=== PATIENT | female | born 1965 | race Asian ===

== ENCOUNTER 2020-09-04 19:34 | Inpatient (IN) | payer OTHER ==
[~2020-09-04] VITALS: Ht 157.5 cm; Wt 56.2 kg
[2020-09-04 19:52] VITALS: Ht 157.5 cm; Wt 56.2 kg
--- NOTE | 2020-09-04 20:01 | NUR ---
PT WAS BIBA WITH A C/C OF BLEEDING FROM THE LEFT BREAST. PT REPORTS APROX 4 YEARS AGO SHE PICKED A SCAB OFF OF HER LEFT NIPPLE AND SITUATION HAS PROGRESSED FROM THEN. PT REPORTS BLEEDING FROM THE LEFT BREAST. UPON INSPECTION PT HAS SKIN BREAK DOWN OF THE LEFT BREAST AND BLACK TISSUE AROUND THE NIPPLE. PT HAS LEFT BREAST COVERED WITH TISSUE. PT ALSO HAS BLACK TISSUE AROUND THE RIGHT NIPPLE. PT AAO X4 RESPIRATIONS E/U NO ACUTE DISTRESS NOTED. DR. PARNELL AT BEDSIDE FOR MSE.
--- NOTE | 2020-09-04 20:02 | NUR ---
PT ALSO HAS SWELLING TO THE LEFT ARM X4 DAYS. PT REPORTS NO PAIN AT AFFECTED SITE OR ARM. PER MEDIC PT VOMITED ONE TIME ON SCENE AND WAS GIVEN 4MG IVP OF ZOFRAN. PT REPORTS NO NAUSEA AT THIS TIME.
[2020-09-04 20:45] LABS: CALCIUM 8.2 mg/dL (8.5-10.1); CARBON DIOXIDE 16.8 mmol/L (21-32); CHLORIDE SERUM 98 mmol/L (98-107); GFR1 > 60 mL/min; GLUCOSE SERUM 166 mg/dL (74-106); POTASSIUM SERUM 3.7 mmol/L (3.5-5.1); SODIUM SERUM 131 mmol/L (136-145)
[2020-09-04 20:46] LABS: PLATELET COUNT 270 x10^3mcL (130-400)
[2020-09-04 20:50] LABS: ALBUMIN 1.8 g/dL (3.4-5.0); ALKALINE PHOSPHATASE 408 U/L (46-116); ALT/SGPT 51 U/L (14-59); AST/SGOT 56 U/L (15-37); BILIRUBIN TOTAL 0.5 mg/dL (0.20-1.00); TOTAL PROTEIN, SERUM 6.1 g/dL (6.4-8.2)
[2020-09-04 20:55] LABS: RED CELL DISTRIBUTION WIDTH 23.2 % (11.5-14.5)
--- NOTE | 2020-09-04 21:13 | NUR ---
PT LAYING SUPINE IN GURNEY IN POSITION OF COMFORT. PT AAO X4 REPSIRATIONS E/U NO ACUTE DISTRESS NOTED.
[2020-09-04 21:16] LABS: BAND NEUTROPHIL 14 % (0-10); BASOPHIL 0 % (0-2); METAMYELOCTE 5 % (0-2); MONOCYTE 8 % (0-7); SEGMENTED NEUTROPHILS 42 % (37-75)
[2020-09-04 21:18] LABS: rbc morphology (normal/abnorm) ABNORMAL (NORMAL)
[2020-09-04 21:19] LABS: schistocyte (helmet cell) 1+
[2020-09-04 21:20] LABS: PLATELET MORPHOLOGY PLATELETS NORMAL
--- NOTE | 2020-09-04 21:40 | NUR ---
SPOKE WITH LAB TO GET UPDATE ON STATUS OF BLOOD ORDERED. LAB STATES BLOOD WILL BE AVAILABLE IN APROX 30 MIN. WILL FOLLOW UP.
--- NOTE | 2020-09-04 22:54 | NUR ---
15 MINUTE SANTINO OF BLOOD ADMINISTRATION. PT DENIES ANY SYMPTOMS OF TRANSFUSION REACTION. PT AAO X4 RESPIRATIONS E/U NO DISTRESS NOTED.
--- NOTE | 2020-09-04 23:31 | NUR ---
CALLED REPORT TO PIERCE LOPEZ TO ASSUME PRIMARY CARE OF PT.
[2020-09-04 23:40] LABS: CHOLESTEROL/HDL RATIO 5.8; MAGNESIUM 2.2 mg/dL (1.8-2.4); PHOSPHOROUS 4.7 mg/dL (2.5-4.9)
--- NOTE | 2020-09-04 23:59 | NUR ---
RESIDENT ROBERTS AT BEDSIDE FOR ASSESSMENT.
[2020-09-05] VITALS (7 sets, daily range): BP systolic 96–135; BP diastolic 58–74
[2020-09-05 00:08] LABS: FREE T4 0.9 ng/dL (0.76-1.46); FREE THYROXINE INDEX 2.1 ug/dL (1.4-4.5); T4(THYROXINE) 6.3 ug/dL (4.7-13.3)
[2020-09-05 00:20] LABS: T3 TOTAL 1.48 ng/mL
--- NOTE | 2020-09-05 00:32 | NUR ---
CRITICAL RESULT OF LACTIC ACID OF 3.[address] CORTÉS PAGED AT [phone] TO TELL CRITICAL RESULT TO. DR. BARBER, ED DOCTOR AWARE OF CRITICAL RESULT WELL. HOWEVER, PATIENT IS NOW UNDERADMISSION ORDERS AND DR. BARBER IS NO LONGER THE PRIMARY CARE DOCTOR.
--- NOTE | 2020-09-05 00:46 | NUR ---
PIERCE LOPEZ [facility] PRIMARY RN INFORMED OF CRITICAL VALUES OF 3.6 LACTIC ACID AND 0.157 TROPONIN. IT WAS AGREED THAT AFTER AN HOUR IF DR. CORTÉS DOES NOT CALL BACK IN AN HOUR I WILL LET PIERCE LOPEZ KNOW AND SHE WILL ASSUME RESPONSIBILITY TO LET DR. CORTÉS CRITICAL VALUES.
--- NOTE | 2020-09-05 00:50 | NUR ---
LACTIC ACID 3.6, TROPONIN 0.157 - DR. ROBERTS NOTIFIED.
--- NOTE | 2020-09-05 01:12 | NUR ---
REC'D PT FROM ED VIA [facility] ACCOMPANIED BY RN. PT ADM WITH CC OF L BREAST BLEEDING. BLOOD INFUSING @ 150 ML/HR TO RAC. RAC IV X2. PT TRANSFERRED FROM [facility] TO BED VIA SLIDE WITH 2 PERSON ASSIST. AAOX4, SPEECH CLEAR, FOLLOWS COMMANDS. TELE 35. DENIES CP, DIZZINESS, OR PALPITATIONS. C/O SOME LIGHTHEADEDNESS. DENIES RESP DISTRESS OR SOB. BREATHING EVEN/UNLABORED ON RA. REPORTS MILD PRODUCTIVE COUGH WITH SCANT YELLOW- GREEN SPUTUM. ABD SOFT/ROUND. DENIES ABD PAIN, TENDERNESS, OR N/V. VOIDING FREELY. LARGE OPEN WOUND ACROSS THE CHEST- MOSTLY ON THE LEFT SIDE. MOSTLY RED WOUND BED WITH YELLOW SPOTS AND PAPER ON THE WOUND. PT STATES SHE HAS BEEN "PUTTING TOILET PAPER" TO SOAK UP THE FLUID. R BREAST WITH BLACK TISSUE. DENIES ANY PAIN. BLE TRACE NONPITTING EDEMA. JESUS MANUEL TRACE PITTING EDEMA. ORIENTED TO DEVICES AND SURROUNDINGS. CALL LIGHT WITHIN REACH, BED AT LOWEST POSITION. REPORT GIVEN TO PIERCE LOPEZ.
--- NOTE | 2020-09-05 01:46 | NUR ---
CRITICAL VALUE TOLD TO DR. HUERTAS OF 3.6 LACTIC ACID AND 0.157 TROPONIN. ATTENDING MD TO DR. HUERTAS CALLED TO GET CRITICAL VAULE AND UNIT SECRATARY DID NOT LET YAYA RN KNOW THEY CALLED TO GIVE CRITICAL VAULE. WAS TOLD BY UNIT SECRATRY OF ED THAT I ONLY NEEDED TO TELL THE RESIDENT OF THE CRITICAL VALUES AND THE RESIDENT WILL TELL THE ATTENDING OF THE CRITICAL VALUES.
--- NOTE | 2020-09-05 04:32 | NUR ---
LACTIC 2.3 DOWN TRENDING FROM 3.6 DR. ROBERTS NOTIFIED.
--- NOTE | 2020-09-05 06:21 | NUR ---
PT REMAINS A/OX4, COOPERATIVE, BUT ANXIOUS WITH MANY QUESTIONS. TELE 35, ST 1 TEENS -150S, DENIES CHEST PAIN, DIZZINESS/LIGHTHEADEDNESS. RESPIRATIONS EVEN, UNLABORED, DENIES SOB, RA. NO BM DURING SHIFT. 100ML UOP, CHARANJIT YELLOW. UA, UDS SENT. PT HAS GENERALIZED WEAKNESS AND IS CURRENTLY BEDREST BUT ABLE TO SELF TURN AND ASSIST WITH ADLS. L BREAST/CHEST WALL DEFORMED WITH NECROTIC TISSUE AND ERYTHEMA, TISSUE PAPER STUCK TO WOUND. SEROSANGUINEOUS DRAINAGE, NO BLEEDING NOTED. WOUND COVERED WITH ADAPTIC AND ABD PAD. R BREAST HAS DISCOLORATION AND NECROTIC TISSUE, SENIOR ACCOUNTING MANAGER. NO C/O PAIN. IV X 2 RAC - RUNNING NS@126ML/HR, PATENT, NO COMPLICATIONS TO SITE. PT PENDING US GUIDED BIOPSY, CONSULT WITH VIJAY FOR ELEVATED TROP, GRACIE AND JASMEET. PT MAINTAINED NPO FOR POSSIBLE SURGERY TO L BREAST.
[2020-09-05 06:35] LABS: UA SPECIFIC GRAVITY >=1.030 (1.005-1.035); microscopic required? YES; urine erythrocyte 1+ (NEGATIVE)
--- NOTE | 2020-09-05 08:00 | NUR ---
OX4. TELE 35; NO SOB AT RA. DENIES CP OR OTHER DISCOMFORT; EDEMA ON LUE AND BLE; LT BREAST DSG INTACT; NOTED SEROSANGUINOUS/PURELENT DRAIN ON DSG. DISCOLORATION NOTED ON RT BREAST; ABD IS SOFT, NONTENDER AND NONDISTENDED; NSS AT 126 ML/HR INFUSING; RAC SITE PATENT AND WITHOUT INFILTRATION. FALL AND SAFETY PRECAUTION REINFORCED; WILL CONTINUE TO MONITOR STATUS.
[2020-09-05 08:49] LABS: BASOPHIL % 0.3 % (0-2); PLATELET COUNT 223 x10^3mcL (130-400)
[2020-09-05 09:05] LABS: CARBON DIOXIDE 24.9 mmol/L (21-32); CHLORIDE SERUM 101 mmol/L (98-107); CREATININE SERUM 0.6 mg/dL (0.6-1.0); GFR1 > 60 mL/min; GLUCOSE SERUM 83 mg/dL (74-106); MAGNESIUM 1.9 mg/dL (1.8-2.4); PHOSPHOROUS 3.2 mg/dL (2.5-4.9); POTASSIUM SERUM 3.9 mmol/L (3.5-5.1); SODIUM SERUM 133 mmol/L (136-145)
[2020-09-05 09:07] LABS: AMPHETAMINE QUAL UR NONE DETECTED (See below)
--- NOTE | 2020-09-05 12:40 | NUR ---
(SURGEON) HERE TO SEE PT ACCOMPANIED BY DR. PHILIPPE.
--- NOTE | 2020-09-05 14:28 | NUR ---
PT WAS BROUGHT DOWN TO OR WITH SIGNED CONSENT FOR DEBRIDEMENT LT BREAST/CW INFECTION, BIOPSY. PT IS AAOX4. NO SOB AT RM AIR; PT LEFT THE UNIT BY BED.
--- NOTE | 2020-09-05 17:15 | NUR ---
1640-PT IS BACK FROM O.R. POST DEBRIDEMENT LT BREAST/CHEST WALL INFRECTION, BIOPSY. PT IS AAOX4; NO SOB; LT BREAST DSG CDI; PER HOT STICK MAN, DSG CONSIST OF XEROFORM, ABD PAD AND AZALEA WRAP. DENIES PAIN AT THIS TIME. SLX2 ON THE RT AC; IVF NSS AT 126 ML/HR RESUMED. 1700-DR. BOWMAN (ONCOLOGIST) AND DR. PHILIPPE IN THE ROOM TALKING TO PT. WILL CONTINUE TO MONITOR.
--- NOTE | 2020-09-05 17:20 | NUR ---
RECEIVED PT FROM DAY SHIFT RN. PT AA&O X4. PT DENIES CHEST PAIN AND DISCORMFOT AT THIS TIME. PT ON ROOM AIR WITH O2 SAT 98%. PT DENIES SOB AT THIS TIME. LEFT CHEST DRESSING DRY AND INTACT. INSTRUCTED PT TO USE CALL LIGHT AND PHONE.CALL LIGHT AND PHONE WIHIN REACH.BED IN LOW POSITION. WILL CONTINUE TO MONITOR PT.
--- NOTE | 2020-09-05 18:05 | NUR ---
1745-DR. LIANRES IS HERE ASSESSING PT.
--- NOTE | 2020-09-06 01:20 | NUR ---
PT C/O PINK SPUTUM WHEN SHE TRIED TO CLEAR HER THROAT. SMALL AMOUNT OF BLOOD TINGED SPUTUM NOTED. LUNG SOUNDS CLEAR BILATERAL BY AUSCULTATION. PAGED THE MD REGARDING PT CONCERNS.
[2020-09-06 06:06] VITALS: BP 126/60
--- NOTE | 2020-09-06 06:27 | NUR ---
PT SLEPT IN LONG INTERVALS. SHE HAD NO C/O PAIN. DRESSING TO LT BREAST INTACT. DUE IV ANTIBIOTICS GIVEN. IVF NS INFUSING WELL AT 126 CC/HR VIA RTAC. ALL NEEDS ATTENDED TO.
[2020-09-06 06:51] LABS: PLATELET COUNT 206 x10^3mcL (130-400)
[2020-09-06 07:06] LABS: CALCIUM 7.7 mg/dL (8.5-10.1); CARBON DIOXIDE 25.5 mmol/L (21-32); CHLORIDE SERUM 104 mmol/L (98-107); CREATININE SERUM 0.6 mg/dL (0.6-1.0); GFR1 > 60 mL/min; GLUCOSE SERUM 121 mg/dL (74-106); MAGNESIUM 2.1 mg/dL (1.8-2.4); PHOSPHOROUS 3.3 mg/dL (2.5-4.9); POTASSIUM SERUM 3.9 mmol/L (3.5-5.1); SODIUM SERUM 135 mmol/L (136-145)
[2020-09-06 07:16] LABS: RED CELL DISTRIBUTION WIDTH 18.3 % (11.5-14.5)
--- NOTE | 2020-09-06 07:27 | NUR ---
ENDORSED TO AM NURSE TO REPORT TO RESIDENT REGARDING H/H OF 6.5/20 .
[2020-09-06 08:40] VITALS: BP 132/84
[2020-09-06 13:03] VITALS: BP 99/60
[2020-09-06 13:59] LABS: MONOCYTE 7 % (0-7); SEGMENTED NEUTROPHILS 70 % (37-75); rbc morphology (normal/abnorm) ABNORMAL (NORMAL)
--- NOTE | 2020-09-06 19:00 | NUR ---
PT REPORT RECEIVED FROM SECURITY SYSTEM ENGINEER RN. PT IS CURRENTLY AWAKE. WAS WARNED THAT THERE WOULD BE FREQUENT PT INTERACTIONS. THERE WAS FREQUENT PT INTERACTIONS THROUGHOUT SHIFT EVEN WITH TRYING TO CUT IT SHORT. PT QUESTIONS MINOR DETAILS OF TREATMENTS REPEATEDLY. PT WAS EDUCATED ON NEED FOR FREQUENT REPOSITIONING BUT PT REFUSES TO REPOSITION AND USE BSC BECAUSE SHE IS AFRAID OF HURTING WOUND ON CHEST. LAB REPORTED CRITICAL VALUES FOR PT WBC AND HGB HCT. PAGED THE DOCTORS BUT NO CALL BACK. HOWEVER, I NOTED AND ACKNOWLEDGED AN ORDER FOR PRBCs. WAS LATER INFORMED BY BLOOD BANK THAT ORDER NEEDED TO BE CHANGED FROM AUTOLOGOS PRBC TO LEUKOPOOR PRBC, INFORMED . 1 IV ON THE RIGHT AC AREA LEAKED AND WAS DISCONTINUED, DRESSING CHANGED FOR NEARBY IV. 2 UNITS OF PRBCs ADMINISTERED DURING SHIFT. PT's R AC IV LEAKED AND CAUSED BRUISING DURING ADMINISTRATION OF 1st UNIT. 2nd UNIT OF PRBC WAS GIVEN AT TITRATED MULTIPLE TIMES DUE TO PT COMPLAINT OF PAIN ON IV SITE TO A FINAL 100ml/hr. NEW IV PLACED ON RIGHT HAND BY RESOURCE RN GEE. ENDORSED MONITORING TO SECURITY SYSTEM ENGINEER RN. ALSO INFORMED OF NEED TO CHANGE PT's CT with CONTRAST ORDER TO INCLUDE without CONTRAST FOR COMPARISON REPORTED BY RADIOLOGY. TALKED TO PHARMACY REGARDING PT's VANCO ORDER AND VANCO TROUGH, DOSAGE WAS CHANGED AND TIME WAS ADJUSTED TO ACCOMODATE BLOOD ADMINISTRATION AND UPCOMING CT SCHEDULED. PT REMAINED STABLE THROUGHOUT SHIFT AND WAS NOTICEABLY MORE ENERGETIC WITH ADMINISTRATION OF 1st UNIT OF PRBCs. SAFETY PRECAUTIONS ARE IN PLACE. WILL ENDORSE CARE TO SECURITY SYSTEM ENGINEER RN. - TERMITE TREATER HELPER STUDENT, JEVON, WAS SHADOWING ME FOR THIS SHIFT AND HELPED ME WITH PRIMING TUBES AND ADMINISTERING PO AND SQ MEDICATIONS. OBSERVED FOR CORRECT TECHNIQUES WITH FIRST ADMINSITRATIONS AND WAS NEARBY AND MOSTLY PRESENT FOR FOLLOWING INTERVENTIONS.
--- NOTE | 2020-09-06 19:30 | NUR ---
RECEIVED PT FROM DAY SHIFT NURSE. PT AA&OX4. PT ON TELE#35, SINUS TACHYCARDIA 168. PT DENIES CHEST PAIN OR DISCOMFORT AT THIS TIME. LEFT UPPER EXTREMITY NON-PITTING EDEMA NOTED. BILATERAL LOW EXTREMITIES NON-PITTING EDEMA NOTED CURRENTLY ON SCD. DRESSING INTACT AND DRY ON CHEST NOTED. RIGHT AC PURPLE COLOR SKIN NOTED. LUNG SOUNDS CLEAR BILATERAL, ON ROOM AIR, DENIES SOB AT THIS TIME. IV SITE INTACT AND PATENT. NO ACUTE CHANGES NOTED. INSTRUCTED PT TO CALL FOR ANY ASSISTANCE. CALL LIGHT WITHIN REACH. BED IN LOW POSITION. WILL CONTINUE TO MONITOR PT.
[2020-09-06 21:00] VITALS: BP 109/61
--- NOTE | 2020-09-06 21:00 | NUR ---
2ND UNIT OF PRBC COMPLETED. NO ADVERSE REACTION TO TRANSFUSION OCCURRED. V/S TAKEN AND NOTED STABLE.
[2020-09-06 21:16] VITALS: BP 115/48
--- NOTE | 2020-09-06 21:50 | NUR ---
TRIED TO PUT ANOTHER IV ( FOR CONTRAST). PT IS HARD STICK. PT THEN REFUSED AND SAID SHE WANTS TO REST AND WANTS IT TOMORROW.
--- NOTE | 2020-09-07 05:30 | NUR ---
DRESSING TO LT BREAST CHANGED. XEROFORM GAUZE APPLIED AND COVERED W/ ABD PAD. MOD AMOUNT OF DRAINAGE NOTED. PT ALSO GIVEN MORNING CARE. GOWN AND BLANKETS CHANGED.
--- NOTE | 2020-09-07 07:00 | NUR ---
INFORMED DR. DE PAZ THAT CT HEAD AND NECK W/& W/O IV CONTRAST HAS NOT BEEN DONE YET DUE TO UNABLE TO INSERT IV ON PT. BUT WILL ENDORSE TO AM NURSE TO TRY REINSERTION PER PT'S REQUEST TO HAVE IT DONE TODAY.
--- NOTE | 2020-09-07 07:07 | NUR ---
PATIENT RESTED WELL DURING SHIFT. NO ACUTE CHANGES; NO CHEST PAIN OR SOB. CALL LIGHT WITHIN REACH, WILL ENDORSE CONTINUITY OF CARE TO DAY SHIFT RN.
[2020-09-07 07:48] LABS: PLATELET COUNT 190 x10^3mcL (130-400)
--- NOTE | 2020-09-07 07:50 | NUR ---
RECEIVED PT IN BED A/A/OX4 DENIES COKER. RESP EVEN AND UNLABORED WITH DIMINISHED BS BILAT BASES. DENIES ANY SOB/CP/PRESSURE AT THIS TIME. NOTED WITH NONPITTING EDEMA TO BLE AND LUE. ELEVATED ON PILLOW. IVF TO RH. ABD SOFT, NONTENDER WITH ACTIVE BS X4. DENIES ANY N/V AT THIS TIME. VOIDING FREELY USES BEDPAN. PT WITH LARGE WOUND TO LT BREAST/CHEST AREA. S/P INCISIONAL BX. DRSG CHANGE THIS AM. DRSG CDI. PT REFUSED FURTHER EVALUATION OF WOUND SINCE SHE JUST HAD DRSG CHANGE. GEN WEAKNESS ABLE TO ASSIST WITH REPOSITIONING AND WITH ADLS. CALL LIGHT IN REACH NEEDS ATTENDED TO.
[2020-09-07 08:02] LABS: RED CELL DISTRIBUTION WIDTH 15.5 % (11.5-14.5)
[2020-09-07 08:07] LABS: CALCIUM 7.9 mg/dL (8.5-10.1); CARBON DIOXIDE 22.6 mmol/L (21-32); CHLORIDE SERUM 110 mmol/L (98-107); CREATININE SERUM 0.7 mg/dL (0.6-1.0); GFR1 > 60 mL/min; GLUCOSE SERUM 134 mg/dL (74-106); MAGNESIUM 2.2 mg/dL (1.8-2.4); PHOSPHOROUS 2.7 mg/dL (2.5-4.9); POTASSIUM SERUM 3.5 mmol/L (3.5-5.1); SODIUM SERUM 140 mmol/L (136-145)
[2020-09-07 08:38] VITALS: BP 109/53
[2020-09-07 10:45] LABS: BAND NEUTROPHIL 1 % (0-10); MONOCYTE 5 % (0-7); SEGMENTED NEUTROPHILS 84 % (37-75); rbc morphology (normal/abnorm) NORMAL (NORMAL)
--- NOTE | 2020-09-07 11:04 | NUR ---
SPOKE TO CHARGE NURSE HANDY TO NOTIFY HER THAT DUE TO REQUEST OF SHAJI PRETTY TO DO MRI ON ANOTHER PATIENT THIS AM PRIOR TO THIS ONE THAT THE MRI TIME WILL BE MOVED TO 1030 THIS EVENING. HANDY WILL NOTIFY THE PHYSICIAN AND THE PATIENT.
--- NOTE | 2020-09-07 12:13 | NUR ---
PT'S IV TO RH INFILTRATED SITE SLIGHTLY SWOLLEN AND TENDER. IVF STOPPED. CHECKED AREA FOR NEW IV ONLY VISIBLE SITE WAS HAND. PT REQUESTED TO WAIT TO CHECK IF SWEELING COMES DOWN BEFORE ATTENPTING NEW LINE. PT STILL REQUIRES 20G FOR CT WITH IV CONTRAST. DR. TAVARES HAD BEEN MADE AWARE THIS AM OF MULTI SHARE PROGRAM COORDINATOR NOT BEING ABLE TO GET ACCESS. MADE AWARE NO VISIBLE SITE FOR AC OR UPPER ARM AT THIS TIME FOR 20G. WILL ALLOW SWELLING TO COME DOWN BEFORE ATTEMPTING REQUESTED BY PT. MD AWARE.
[2020-09-07 12:42] VITALS: BP 115/60
--- NOTE | 2020-09-07 14:37 | NUR ---
Initial Nutrition Assessment 236B Isabell Stephenson - 54 YO F Dx: Severe Anemia, Left Breast Mass PMHx: None PSHx: None Labs: (09/05) NA 135L, BG 121H, CA 7.7L, ALB 1.8L, HDL 16L Meds: Colace, Decadron Diet: Regular diet PO intake since admission: (09/05) D: 60% (09/06) B: 40%, prior NPO, avg 50% x 2 Ht: 157.48cm/ 5'2" Wt: 56.245kg/ 124# BMI: 22.7 Bed scale: IBW: 110#/ 50kg %IBW: 127% UBW: Age: 54 Food Allergies: NKFA Skin condition: Kp: 19 Edema: nonpitting edema to BLE and LUE Last BM: 09/04 Per H&P: A 54 y/o F with no known PMH brought in by EMS for active bleeding from her left breast mass. Per EMS patient may lost about 1L blood at home, she was hypotensive with tachycardia. Patient stated developing a small skin scab on her left nipple in 2015 and since then she has been constantly peeling the skin off because the skin is kept growing. At that time she tried to see the specialist and even was scheduled for the mammogram, but her mom was [place] and she had to leave the country. Her mom of breast cancer. She tried to see a doctor again in 2016, but didn't have any insurance and could not afford it out of her pocket. [phone] was just a scab near her left nipple/areola that she peeled constantly, especially after the shower. In 2018 the scab growed as a bump/lump and muliplied in size and quantity. She could obtain the insurance and got scheduled for the mammogram in January, but because the Covid-19 pandemic didn't go to her appointments. Patient reported the acute, profuse and continious bleeding from her left breast since Monday. She tried to stop the bleeding with toilet papers to press on the bleeding parts. Also, patient reported progressing swelling of her left hand last couple weeks. She endorses wt loss about 4-5lbs, also weakness in last few days. RD Note (09/07): Consult for PC malnutrition received. Pt undergone L breast/chest wall mass incisional biopsies, sharp excisional debridement infected/gangrene areas L breast/chest wall and mass. Per progress note, highly suspected Breast Cancer stage 4 with mets to the bones with cauda equina syndrome. Upon visit to bedside pt was talking on phone but returned shortly. She reports she usually weighs 130-135#. Markedly some wt loss about 5-8#. She denies n/v/d/c. No problems chewing or swallowing and good appetite per patient. She says she eats "healthy" at home and "organic." High protein and high calorie education given to patient to assist healing process. She agrees and says she is eating more with an improved appetite. Will continue to monitor intake on a regular diet. Problem with: N/V/D/C: none per pt Problems with: Chewing: Swallowing: no problems Current appetite: good per pt, same as before Recent wt change: 5-8# %wt change: 8% wt. loss Vitamin/Supplement use: omega 3 FA Special diet at home: regular Physical activity: minimal, no much Nutrition education given (specify specific nutrition education and handout given): High Calorie/ High Protein Handout. Pt agrees to add more snacks and high protein meals. Food-drug interactions? Education given? Yes, patient education on high calorie and protein for wound healing. Shopping tips, recipes, and meal examples shown. Estimated Nutritional Needs Based on Actual (56kg) body weight Energy: 1680 - 1960 kcal/day (30-35 kcal/kg) breast ca, bleeding Protein: 84 - 112 g/day (1.5 - 2.0 g/kg) catabolic illness, wt loss reported Fluid: 1680 - 1960 mL/day (1 mL/kcal) Nutrition Diagnosis: Increased Nutrient Needs r/t catabolic illness aeb wound/ breast discharge/ bleeding, reported wt loss, anemic Intervention 1. Continue with liberalized Regular diet. 2. Recommend adding Ensure Enlive BID with meals (provides additional 700kcal/ 40gm protein) to meet high protein needs. Monitor/Evaluate Goal: PO intake at least 75% of estimated needs Monitor: PO intake, Labs, GI function F/U in 2-3 days as high risk 09/09-
--- NOTE | 2020-09-07 14:37 | NUR ---
1. Continue with liberalized Regular diet. 2. Recommend adding Ensure Enlive BID with meals (provides additional 700kcal/ 40gm protein) to meet high protein needs.
[2020-09-07 16:10] VITALS: BP 111/56
--- NOTE | 2020-09-07 16:30 | NUR ---
NEW IV INSERTED 22G RW. NO VISIBLE ACCESS FOR 20G IV. DR. RODRIGUEZ CALL AND MADE AWARE. PER TRU IN RADIOLOGY PT WOULD NEED CENTRAL LINE SINCE MIDLINES AND PICC ARE NOT COVERED IN OUT POLICY TO CONTRAST ADMINISTRATION WITH CT. PER DR. TAVARES WILL INDORSE TO NOC SHIFT AND TO BE DISCUSSED IN AM.
--- NOTE | 2020-09-07 18:53 | NUR ---
PT RESTING AT THIS TIME. DENIES ANY DISCOMFORT. CALL LIGHT IN REACH NEEDS ATTENDED TO.
--- NOTE | 2020-09-07 19:49 | NUR ---
RECEIVED PT FROM DAY SHIFT NURSE. PT AWAKE RESTING IN BED ON THE PHONE AT THIS TIME. A/OX4. ON TELE#35 READING NSR AT 91 BPM. PT DENIES CHEST PAIN OR PRESSURE AT THIS TIME. PULSES WEAK. PT HAS EDEMA TO BUE AND BLE NON PITTING, ENCOURAGED PT TO ELEVATED ARM. RR EVEN AND UNLABORED ON RA, PT DENIES SOB OR DIFFICULTY BREATHING. PT REPORTED NOT HAVING BOWEL MOVEMENT, WILL MEDICATE PER MAR. ENCOURAGED PT TO DRINK FLUIDS. PT HAS HAD POOR APPITITE PER DAY SHIFT. VOIDS FREELY. GENERALIZED WEAKNESS NOTED, AMBULATORY WITH ASSISTANCE. PT HAS DRESSING TO L HEART WITH XENOFORM, ABD PAD, AND AZALEA WRAP. DRSG CDI. N C/O PAIN OR DISCOMFORT AT THIS TIME. IV TO R WRIST 22G INFUSING NS AT 125ML/HR. NO SIGNS OF INFILTRATION NOTED. PT HAS ERYTHEMA TO R UPPER EXTREMITY NOTED. CALL LIGHT WITHIN REACH. BED IN LOWEST POSITION. INSTRUCTED PT TO USE CALL LIGHT WHEN NEEDING ASSISTANCE. WILL CONTINUE TO MONITOR.
[2020-09-07 21:06] VITALS: BP 114/57
--- NOTE | 2020-09-08 01:43 | NUR ---
PT SLEEPING AT THIS TIME. NO SIGNS OF ACUTE DISTRESS NOTED. WILL CONTINUE TO MONITOR.
[2020-09-08 05:57] VITALS: BP 114/69
--- NOTE | 2020-09-08 06:34 | NUR ---
PT RESTING IN BED AT THIS TIME. NO SIGNS OF ACUTE DISTRESS NOTED. RR EVEN AND UNLABORED ON RA. PT DENIES PAIN AT THIS TIME. IV PATENT AND INTACT. ALL NEEDS/CONCERNS ADDRESSED THROUGHOUT THE SHIFT. CALL LIGHT WITHIN REACH. WILL ENDORSE CARE TO ONCOMING SHIFT NURSE.
--- NOTE | 2020-09-08 07:12 | NUR ---
RECEIVED PT FROM NIGHT LEOBARDO RN. AOX4 ABLE TO MAKE NEEDS KNOWN, ABLE TO FOLLOW COMMANDS, DENIES COKER/DIZZINESS. TELE 35 ST. NONPITTING EDEMA TO LUE AND BLE NOTED. DIMINISHED LUNG SOUNDS, ON RQA, NO SOB/COUGH NOTED, RESP E/U. ABDOMEN SOFT/ROUND, DENIES N/V/D, C/O NO BM SINCE 09/04, PT GIVEN COLACE LAST NIGHT, NO BM YET. USES BEDPAN. GENERALIZED WEAKNESS, AMBULATORY WITH ASSIST. WOUND TO L BREAST COVERED WITH DRESSING, CHANGED DAILY, WAITING FOR WOUND CARE CONSULT FOR POSS CHANGE IN DRESSING ORDER. NO C/O PAIN. IV TO RW 22G IN PLACE, NS RUNNING AT 126ML/HR, CDI. CALL LIGHT IN REACH, WILL CONTINUE TO MONITOR.
[2020-09-08 08:12] VITALS: BP 120/63
[2020-09-08 09:31] LABS: PLATELET COUNT 203 x10^3mcL (130-400)
[2020-09-08 09:50] LABS: CALCIUM 8.1 mg/dL (8.5-10.1); CARBON DIOXIDE 24.9 mmol/L (21-32); CHLORIDE SERUM 108 mmol/L (98-107); CREATININE SERUM 0.8 mg/dL (0.6-1.0); GFR1 > 60 mL/min; GLUCOSE SERUM 109 mg/dL (74-106); MAGNESIUM 2.3 mg/dL (1.8-2.4); PHOSPHOROUS 3.1 mg/dL (2.5-4.9); POTASSIUM SERUM 3.2 mmol/L (3.5-5.1); SODIUM SERUM 140 mmol/L (136-145)
[2020-09-08 10:43] LABS: RED CELL DISTRIBUTION WIDTH 16.5 % (11.5-14.5)
[2020-09-08 11:55] VITALS: BP 125/49
--- NOTE | 2020-09-08 13:38 | NUR ---
WOUND CARE EVALUATION NOTE: WOUND CARE ASSESSMENT DONE S/P I&D LEFT BREAST DEBRIDEMENT. PER DR. DOUGHERTY NOTE PATIENT WITH LEFT BREAST CANCER WITH LIKELY DIFFUSE METASTATIC DISEASE AND REGIONAL LYMPHADENOPATHY. AWAITING PATHOLOGY RESULTS FROM THE BIOPSY. TUMORS OR FUNGATING LESIONS UPPER CHEST FROM LEFT TO RIGHT BREAST WITH DISFIGURING. WOUND CARE TEACHING AND POC DISCUSSED WITH PT. PT. VERBALIZES UNDERSTANDING. POC DISCUSSED WITH DR. PINO, ALSO REQUEST HOME HEALTH FOLOW WOUND CARE AFTER DISCHARGE. INTEGUMENTARY: LEFT BREAST FUNGATING LESIONS WITH S/P DEBRIDEMENT SURGICAL WOUND [id number] WOUND BED 90& GRANULATING TISSUE, 10 % SOFT THIN LAYER OF YELLOW SIDDIQUI TISSUE MODERATE AMOUNT CLEAR SEROUS DRAINAGE, NO ODOR, WOUND EDGE FLAT AND LISBETH-WOUND SKIN INTACT, SLIGHTLY ERYTHEMA, HARD TO TOUCH, PAIN 3/10. -RIGHT UPPER ARM ERYTHEMA, SKIN INTACT RECOMMENDATIONS: -PLEASE SOAK THE OLD DRESSING WITH NS BEFORE REMOVING OLD DRESSING -CLEANSE LEFT BREAST WOUND WITH NS AND GAUZE, PAT DRY, APPLY ALGINATE DRESSING COVER WITH ABD PAD AND WRAP UPPER CHEST WITH KERLIX ROLL 3X/WEEK AND PRN IF SOILING -PLEASE HAVE HOME HEALTH TO FOLLOW WOUND CARE WHEN DISCHARGE -MAY DISCHARGE WITH WOUND CARE SUPPLY
[2020-09-08 14:15] LABS: BAND NEUTROPHIL 1 % (0-10); SEGMENTED NEUTROPHILS 78 % (37-75)
[2020-09-08 14:16] LABS: MONOCYTE 5 % (0-7); rbc morphology (normal/abnorm) NORMAL (NORMAL)
[2020-09-08 16:43] VITALS: BP 105/55
--- NOTE | 2020-09-08 19:45 | NUR ---
RECEIVED PT FROM DAY SHIFT NURSE. PT A/OX4. ABLE TO MAKE NEEDS KNOWN. SPEECH CLEAR. PT ON TELE#35 READING SINUS TACHYCARDIA. PT DENIES CHEST PAIN OR PRESSURE. PULSES PALPABLE. PT HAS EDEMA TO LUE AND BLE NONPITTING. RR EVEN AND UNLABORED ON RA, PT DENIES SOB OR DIFFICULTY BREATHING. PT VOIDS IN BEDPAN. GENERALIZED WEAKNESS NOTED. AMBULATORY WITH ASSIST. PT WAS SEEN BY WOUND CARE TODAY, DEMONDG CDI. PT DENIES PAIN OR DISCOMFORT AT THIS TIME. IV TO R WRIST INFUSING NS AT 126ML/HR. CALL LIGHT WITHIN REACH. BED IN LOWEST POSITION. WILL CONTINUE TO MONITOR.
[2020-09-08 20:30] VITALS: BP 107/66
--- NOTE | 2020-09-09 00:01 | NUR ---
NOTIFIED DR. ELDRIDGE REGARDING PTS K+ LEVEL AND AN UPDATE REGARDING IV ACCESS FOR CT OF HEAD/NECK. NO NEW ORDERS AT THIS TIME. WILL CONTINUE TO DONAVAN.
--- NOTE | 2020-09-09 00:55 | NUR ---
PT ASLEEP AT THIS TIME. NO SIGNS OF ACUTE DISTRESS NOTED. RR EVEN AND UNLABORED ON RA. IV PATENT AND INTACT INFUSING NS. NO S/S OF PAIN OR DISCOMOFRT. CALL LIGHT WITHIN REACH. WILL CONTINUE TO MONITOR.
[2020-09-09 04:49] VITALS: BP 105/60
--- NOTE | 2020-09-09 06:25 | NUR ---
PT AWAKE RESTING IN BED AT THIS TIME. NO SIGNS OF ACUTE DISTRESS NOTED. ON TELE#35 READING SINUS TACHY. RR EVEN AND UNLABORED ON RA. PT VOIDED ON BEDPAN THROUGHOUT THE NIGHT, CALLED MULTIPLE TIMES AN HOUR. GENERALIZED WEAKNESS NOTED. PT HAS DRSG TO L BREAST, CDI. NO C/O PAIN OR DISCOMFORT AT THIS TIME. PT HAS IV TO R WRIST INFUSING NS AT 126ML/HR. DR. ELDRIDGE ORDERED KCL FOR LOW K+LEVEL, MEDICATED PT PER DEC. ALL NEEDS/CONCERNS ADDRESSED THROUGHOUT THE SHIFT. CALL LIGHT WITHIN REACH. WILL ENDORSE CARE TO ONCOMING SHIFT NURSE.
[2020-09-09 07:18] LABS: BASOPHIL % 0.2 % (0-2); PLATELET COUNT 213 x10^3mcL (130-400)
[2020-09-09 07:34] LABS: CALCIUM 7.7 mg/dL (8.5-10.1); CARBON DIOXIDE 26.2 mmol/L (21-32); CHLORIDE SERUM 106 mmol/L (98-107); CREATININE SERUM 0.7 mg/dL (0.6-1.0); GFR1 > 60 mL/min; GLUCOSE SERUM 66 mg/dL (74-106); MAGNESIUM 2.4 mg/dL (1.8-2.4); PHOSPHOROUS 3.7 mg/dL (2.5-4.9); POTASSIUM SERUM 3.9 mmol/L (3.5-5.1); SODIUM SERUM 141 mmol/L (136-145)
--- NOTE | 2020-09-09 08:06 | NUR ---
AAO TIMES 4. TELE # 35 SR. LUNGS DIMINISHED BLL. O2 SAT ON RA 98%. BS'S ACTIVE TIMES 4. BOYLE WITH GENERALIZED WEAKNESS. PERIPHERAL PULSES PALPABLE. NON PITTING EDEMA BLE AND LUE. DRESSING TO LEFT BREAST CDI. NO C/O PAIN. NO SOB. COOPERATIVE.
[2020-09-09 08:32] VITALS: BP 106/58
--- NOTE | 2020-09-09 11:40 | NUR ---
SHE WAS UNABLE TO PUSH HER BM OUT, IT WAS VISIBLE BEYOND HER ANUS. I CALLED GREYSON GIRARD, AND SHE SAID IT WAS OK TO DIGITALLY DISIMPACT HER. I REMOVED A LARGE AMOUNT OF SOFT BM, BROWN. SHE STATES SHE FEELS BETTER.
[2020-09-09 12:14] VITALS: BP 117/74
[2020-09-09 17:00] VITALS: BP 92/49
--- NOTE | 2020-09-09 17:50 | NUR ---
AAO TIMES 4. MED SURG PATIENT. SHE STATES SHE FEELS A LOT BETTER SINCE HAVING EXTRA LARGE BM DIGITALLY DISEMPACTED TODAY. IV SITE CDI. COOPERATIVE. DRESSING TO LEFT CHEST WALL CDI.
[2020-09-09 18:32] VITALS: BP 111/67
[2020-09-09 20:02] VITALS: BP 113/82
--- NOTE | 2020-09-09 20:37 | NUR ---
RECEIVED REPORT FROM OUTGOING NURSE .SKIN WARM AND DRY TO TOUCH.RESPIRATION EVEN AND UNLABORED,NO RESPIRATORY DISTRESS.LUNGS SOUND DIMINISHED UPON AUSCULTATION. LT. BREAST MASS DRESSING INTACT,NO DRAINAGE NOTED.CURRENTLY RECEIVING NS AT 126 ML/HR TO RT. [id number],NO S/S OF INFILTRATION.LUE AND BLE WITH NON PITTING EDEMA..ENCOURAGED TO CALL LIGHT WITHIN REACH.KEPT COMFORTABLE.
--- NOTE | 2020-09-09 22:29 | NUR ---
RECEIVED PT IN BED AAOX4 NO ACUTE DISTRESS NOTED , PT DENY PAIN , DRESSING TO LEFT BREAST C/D/I , PIV INTACT INFUSING WELL . CALL LIGHT WITHIN PT'S REACH , WILL CON'T TO MONITOR AND ASSIST PT WITH CARE .
--- NOTE | 2020-09-10 01:14 | NUR ---
PT'S IN BED WITH EYES CLOSED.
[2020-09-10 05:12] VITALS: BP 116/68
--- NOTE | 2020-09-10 06:46 | NUR ---
LEFT BREAST DRESSING C/D/I . PIV INTACT INFUSING WELL , PT DENY PAIN AT THE MOMENT .
[2020-09-10 08:04] LABS: PLATELET COUNT 185 x10^3mcL (130-400); RED CELL DISTRIBUTION WIDTH 17.6 % (11.5-14.5)
--- NOTE | 2020-09-10 08:10 | NUR ---
AAO TIMES 4. MED SURG PATIENT. LUNGS CTA BUL, DIMINISHED BASES. O2 SAT ON RA 98%. BS'S ACTIVE TIMES 4. BOYLE WITH LUE WEAKER THAN RIGHT. DRESSING TO LEFT BREAST WITH SMALL AMOUNT OF SEROUS DRAINAGE, WILL CHANGE TODAY. PERIPHERAL PULSES PALPABLE. NON PITTING EDEMA LUE AND BLE. COOPERATIVE.
[2020-09-10 08:17] VITALS: BP 111/48
[2020-09-10 08:18] LABS: CALCIUM 7.8 mg/dL (8.5-10.1); CARBON DIOXIDE 24.4 mmol/L (21-32); CHLORIDE SERUM 108 mmol/L (98-107); CREATININE SERUM 0.6 mg/dL (0.6-1.0); GFR1 > 60 mL/min; GLUCOSE SERUM 64 mg/dL (74-106); POTASSIUM SERUM 3.8 mmol/L (3.5-5.1); SODIUM SERUM 140 mmol/L (136-145)
--- NOTE | 2020-09-10 10:15 | NUR ---
AT 1015 I SOAKED THE LEFT BREAST DRESSING WITH NS, THEN SLOWLY REMOVED IT. THE INNER LEFT BREAST ON TOP OF A HARD GROWTH/TUMOR STARTED BLEEDING, I HAD TO HOLD PRESSURE ON IT FOR ONE HOUR. MEANWHILE GREYSON GIARRD CAME AND SAW IT AND WAS TRYING TO COMMUNICATE WITH THE SURGEON DR DOUGHERTY. AT 1115 IT STOPPED BLEEDING, I APPLIED A LIGHT PRESSURE DRESSING OVER THE TOP OF IT AND APPLIED ALGINATE DRESSING TO REST OF HER BREAST. GREYSON IS AWARE THAT IT STOPPED BLEEDING. SHE PUT IN AN ORDER FOR A PIC LINE TO BE INSERTED.
[2020-09-10 12:12] VITALS: BP 108/70
[2020-09-10 12:21] LABS: BAND NEUTROPHIL 4 % (0-10); MONOCYTE 9 % (0-7); SEGMENTED NEUTROPHILS 67 % (37-75)
[2020-09-10 12:22] LABS: PLATELET MORPHOLOGY PLATELETS NORMAL; burr cell (echinocyte) 1+; rbc morphology (normal/abnorm) ABNORMAL (NORMAL)
--- NOTE | 2020-09-10 12:44 | NUR ---
Intervention 1. Continue with liberalized Regular diet. 2. RDN added Ensure Enlive BID with meals (provides additional 700kcal/ 40gm protein) to meet high protein needs.
--- NOTE | 2020-09-10 12:44 | NUR ---
Follow-up Nutrition Assessment: Dx: Severe Anemia, Left Breast Mass PMHx: None PSHx: None Labs: (09/10/20) Na 140, K 3.8, Glu 64 L, BUN 12.0, Cr 0.6, TG 94, Chol 92, LDL 61, HDL 16 L, A1c 5.9, H/H 10.3 Meds: Colace, Decadron, Zofran Diet: Regular diet PO intake since admission: (09/05) D: 60% (09/06) B: 40%, (09/07) B: 100%, L: 100%, (09/08) B: 70%, L: 60%, (09/09) B: 100%, L: 60%, D: 60%; overall average: 72% x 9 meals. This provides 1251 kcal and 44 gm protein, which meets 75% estimated kcal needs and 52% estimated protein needs; kcal adequate, protein inadequate. RDN added Ensure Enlive BID 1 bottle with lunch and dinner to help meet estimated needs. Ht: 157.48cm/ 5'2" Wt: 56.245kg/ 124# BMI: 22.7 kg/km2, normal IBW: 110#/ 50kg %IBW: 127% UBW: Unknown Age: 54 Food Allergies: NKFA Skin condition: Kp: 19 Edema: nonpitting edema to BLE and LUE Last BM: 09/09/20 x 2 Per H&P: A 54 y/o F with no known PMH brought in by EMS for active bleeding from her left breast mass. Per EMS patient may lost about 1L blood at home, she was hypotensive with tachycardia. Patient stated developing a small skin scab on her left nipple in 2015 and since then she has been constantly peeling the skin off because the skin is kept growing. At that time she tried to see the specialist and even was scheduled for the mammogram, but her mom was sick at [place] and she had to leave the country. Her mom of breast cancer. She tried to see a doctor again in 2016, but didn't have any insurance and could not afford it out of her pocket. [phone] was just a scab near her left nipple/areola that she peeled constantly, especially after the shower. In 2019 the scab growed as a bump/lump and muliplied in size and quantity. She could obtain the insurance and got scheduled for the mammogram in January, but because the Covid-19 pandemic didn't go to her appointments. Patient reported the acute, profuse and continious bleeding from her left breast since Monday. She tried to stop the bleeding with toilet papers to press on the bleeding parts. Also, patient reported progressing swelling of her left hand last couple weeks. She endorses wt loss about 4-5lbs, also weakness in last few days. RD Note (09/07): Consult for PC malnutrition received. Pt undergone L breast/chest wall mass incisional biopsies, sharp excisional debridement infected/gangrene areas L breast/chest wall and mass. Per progress note, highly suspected Breast Cancer stage 4 with mets to the bones with cauda equina syndrome. Upon visit to bedside pt was talking on phone but returned shortly. She reports she usually weighs 130-135#. Markedly some wt loss about 5-8#. She denies n/v/d/c. No problems chewing or swallowing and good appetite per patient. She says she eats "healthy" at home and "organic." High protein and high calorie education given to patient to assist healing process. She agrees and says she is eating more with an improved appetite. Will continue to monitor intake on a regular diet. RD Note (09/10): RDN spoke with Pt. Pt says she has an improved appetite, denies GI distress/discomfort. She says she does not like dempsey because it is too salty for her taste. RDN updated Computrition to reflect dislike for dempsey, prefer for turkey dempsey or proteins other than pork dempsey. Pt denies further questions/concerns for RDN at this time. RDN added Ensure Enlive BID as previously recommended to help meet estimated needs. Estimated Nutritional Needs Based on Actual (56kg) body weight Energy: 1680 - 1960 kcal/day (30-35 kcal/kg) breast ca, bleeding Protein: 84 - 112 g/day (1.5 - 2.0 g/kg) catabolic illness, wt loss reported Fluid: 1680 - 1960 mL/day (1 mL/kcal) Nutrition Diagnosis: Increased Nutrient Needs r/t catabolic illness aeb wound/ breast discharge/ bleeding, reported wt loss, anemic Intervention 1. Continue with liberalized Regular diet. 2. RDN added Ensure Enlive BID with meals (provides additional 700kcal/ 40gm protein) to meet high protein needs. Monitor/Evaluate Goal: PO intake at least 75% of estimated needs Monitor: PO intake, Labs, GI function F/U in 3-5 days as high risk 09/13-09/16
--- NOTE | 2020-09-10 15:40 | NUR ---
I REMOVED THE DRESSING TO LEFT BREAST BY CAREFULLY SOAKING WITH NS AND REMOVING IT MILLIMETER BY MILLIMETER WHILE SOAKING WITH MORE NS. THEN I APPLIED XEROFOAM DRESSING TO KEEP THE ALGINATE FROM STICKING TO JUST THE LEFT INNER BREAST TUMOR THAT WAS BLEEDING EARLIER, THEN I PLACED ALGINATE OVER ALL EXPOSED SKIN, THEN ABD PAD, THEN AZALEA WRAP AROUND HER UPPER BODY TO HOLD DRESSINGS IN PLACE. NO BLEEDING NOTED.
--- NOTE | 2020-09-10 17:34 | NUR ---
THE PIC LINE NURSE INSERTED A MID LINE TO RUE, CXR VERIFIES PLACEMENT, I AM CALLING GREYSON CONTOUR PATH TAPE MILL OPERATOR TO GET PERMISSION TO USE. NO C/O PAIN. NO SOB. COOPERATIVE. ANXIOUS AT TIMES.
--- NOTE | 2020-09-10 19:50 | NUR ---
RECEIVED PT FROM DAY SHIFT NURSE. PT A/OX4. ABLE TO MAKE NEEDS KNOWN. SPEECH CLEAR. PT DENIES COKER/DIZZINESS AT THIS TIME. MED SURG PATIENT. PT DENIES CHEST PAIN OR PRESSURE. PULSES PALPABLE. EDEMA TO LUE AND TRACE EDEMA TO BLE. RR EVEN AND UNLABORED ON RA, PT DENIES SOB OR DIFFICULTY BREATHING. PT VOIDS ON BEDPAN. GENERALIZED WEAKNESS NOTED. PT HAS L BREAST WOUND, LAST DRSG CHANGE TODAY 09/10. NO C/O PAIN OR DISCOMFORT NOTED. PT HAS RAC PICC LINE IN PLACE. PT HAS IV FLUIDS RUNNING AT 126ML/HR. CALL LIGHT WITHIN REACH. BED IN LOWEST POSITION. WILL CONTINUE TO MONITOR PT.
[2020-09-10 20:59] VITALS: BP 123/69
--- NOTE | 2020-09-11 01:32 | NUR ---
PT SLEEPING COMFORTABLY AT THIS TIME. NO SIGNS OF ACUTE DISTRESS NOTED. RR EVEN AND UNLABORED ON RA. NO C/O PAIN OR DISCOMFORT AT THIS TIME. CALL LIGHT WITHIN REACH. WILL CONTINUE TO MONITOR.
[2020-09-11 05:30] VITALS: BP 119/61
--- NOTE | 2020-09-11 06:32 | NUR ---
PT SLEEPING COMFORTABLY AT THIS TIME. NO SIGNS OF ACUTE DISTRESS NOTED. RR EVEN AND UNLABORED ON RA. NO C/O PAIN OR DISCOMFORT. SAJI PICC LINE IN PLACE INFUSING IVF AT 126ML/HR. PT USED THE RESTROOM FREQUENTLY THROUGHOUT THE NIGHT. DRSG TO L BREAST, CDI. CALL LIGHT WITHIN REACH. ALL NEEDS/CONCERNS ADDRESSED THROUGHOUT THE SHIFT. WILL ENDORSE CARE TO ONCOMING SHIFT NURSE.
[2020-09-11 08:18] VITALS: BP 111/55
[2020-09-11 12:22] VITALS: BP 112/77
[2020-09-11 14:42] LABS: PLATELET COUNT 173 x10^3mcL (130-400)
[2020-09-11 14:46] LABS: BASOPHIL % 0 % (0-2); RED CELL DISTRIBUTION WIDTH 17.6 % (11.5-14.5)
[2020-09-11 15:00] LABS: CALCIUM 7.7 mg/dL (8.5-10.1); CARBON DIOXIDE 22.8 mmol/L (21-32); CHLORIDE SERUM 105 mmol/L (98-107); CREATININE SERUM 0.6 mg/dL (0.6-1.0); GFR1 > 60 mL/min; GLUCOSE SERUM 115 mg/dL (74-106); POTASSIUM SERUM 3.4 mmol/L (3.5-5.1); SODIUM SERUM 140 mmol/L (136-145)
[2020-09-11 16:45] VITALS: BP 119/62
--- NOTE | 2020-09-11 17:30 | NUR ---
PATIENT AWAKE, ALERT AND ORIENTED. REMAINS ANXIOUS. ALL QUESTIONS ANSWERED. ENCOURAGED PATIENT TO INCREASE ACTIVITY TOLERATED. LEFT BREAST DRESSING REMAINS CLEAN, DRY AND INTACT. CT OF HEAD AND NECK DONE WITH AND WITHOUT CONTRAST PER ORDER.
[2020-09-11 21:14] VITALS: BP 120/62
[2020-09-12 06:02] VITALS: BP 115/41
--- NOTE | 2020-09-12 06:31 | NUR ---
PATIENT WITH LEFT BREAST DRESSING, PARTIALLY SOAKED, OFFERED TO CHANGE DRESSING BUT PATIENT DECLINE AT THIS TIME, REINFORCED DRESSING. VITAL SIGNS ARE STABLE. IVF INFUSING, PICC LINE PATENT AND DRAWING BLOOD. PATIENT IS ON IV ABX.
[2020-09-12 07:34] LABS: CALCIUM 8.1 mg/dL (8.5-10.1); CARBON DIOXIDE 23.3 mmol/L (21-32); CHLORIDE SERUM 106 mmol/L (98-107); CREATININE SERUM 0.6 mg/dL (0.6-1.0); GFR1 > 60 mL/min; GLUCOSE SERUM 74 mg/dL (74-106); SODIUM SERUM 139 mmol/L (136-145)
--- NOTE | 2020-09-12 07:35 | NUR ---
RECEIVED REPORT FROM HOSPICE NURSE RN. PT APPEARS TO BE SLEEPING WITH NO ACUTE DISTRESS NOTED. PT IS ON RA, WITH EVEN AND NON-LABORED BREATHING. BED IS IN LOW POSITION AND CALL LIGHT WITHIN REACH. WILL ASSESS AND MONITOR PT THROUGHOUT THE SHIFT.
[2020-09-12 07:47] LABS: PLATELET COUNT 173 x10^3mcL (130-400)
[2020-09-12 07:50] LABS: RED CELL DISTRIBUTION WIDTH 17.3 % (11.5-14.5)
[2020-09-12 08:32] LABS: BAND NEUTROPHIL 0 % (0-10)
[2020-09-12 08:33] LABS: rbc morphology (normal/abnorm) NORMAL (NORMAL)
[2020-09-12 09:14] VITALS: BP 113/64
[2020-09-12 11:25] VITALS: BP 114/52
[2020-09-12 16:16] VITALS: BP 94/66
--- NOTE | 2020-09-12 16:45 | NUR ---
PT C/O NUMBNESS TOHER LEFT FACE, AROUND THE MOUTH AND GOING DOWN TO HER NECK. SHE STATES THAT SHE HAS BEEN EXPERIENCING THIS NUMBNESS FOR 3 DAYS. ASSEMBLER STEAM AND GAS TURBINE TANISHA NOTIFIED AND SHE STATES THAT SHE WILL PUT IN ORDERS.
--- NOTE | 2020-09-12 18:14 | NUR ---
PT IS BACK FROM CT OF HEAD. CURRENTLY SITTING UP IN BED AND EATING DINNER. ATTEMPTED TO CHANGE THE DRESSING MULTIPLE TIMES BUT PT KEPT ON BEING ON THE PHONE AND TELLING ME TO COME BACK. WILL ENDORSE TO INCOMING CLEANING CREW MEMBER RN. IVF AND IV ABX ADMINISTERED ORDERED. PT HAS PAIN WITH REPOSITIONING BUT NO PAIN MEDS WERE GIVEN DURING THIS SHIFT. ALL NEEDS ATTENDED TO. WILL ENDORSE CARE TO INCOMING CLEANING CREW MEMBER RN FOR CONTINUITY OF CARE.
[2020-09-12 20:12] VITALS: BP 106/57
--- NOTE | 2020-09-13 00:48 | NUR ---
LEFT BREAST DRESSING CHANGED ORDERED USING ASEPTIC TECHNIQUE. PATIENT TOLERATED WELL.
[2020-09-13 05:49] VITALS: BP 126/68
[2020-09-13 06:39] LABS: BASOPHIL % 0.2 % (0-2); PLATELET COUNT 163 x10^3mcL (130-400)
[2020-09-13 07:06] LABS: RED CELL DISTRIBUTION WIDTH 17.8 % (11.5-14.5)
[2020-09-13 07:17] LABS: CALCIUM 7.9 mg/dL (8.5-10.1); CARBON DIOXIDE 22.3 mmol/L (21-32); CHLORIDE SERUM 106 mmol/L (98-107); CREATININE SERUM 0.5 mg/dL (0.6-1.0); GFR1 > 60 mL/min; GLUCOSE SERUM 73 mg/dL (74-106); POTASSIUM SERUM 3.7 mmol/L (3.5-5.1); SODIUM SERUM 138 mmol/L (136-145)
--- NOTE | 2020-09-13 08:00 | NUR ---
ASSESSMENT COMPLETE DENIES PAIN PLAN OF CARE REVIEWED WILL CONTINUE TO MONITOR AND ASSESS NO ACUTE DISTRESS NOTED AT THIS TIME CALL LIGHT IN REACH
[2020-09-13 08:12] VITALS: BP 113/69
--- NOTE | 2020-09-13 12:10 | NUR ---
ALL NEEDS ANTICIPATED NO DISTRESS NOTED AT THIS TIME CONDITION GUARDED AT THIS TIME CALL LIGHT IN REACH WILL CONTINUE TO MONITOR AND ASSESS
[2020-09-13 12:13] VITALS: BP 116/69
[2020-09-13 16:52] VITALS: BP 106/81
--- NOTE | 2020-09-13 17:55 | NUR ---
ALL NEEDS ANTICIPATED AND MET, AMBULATED WITH PT APPROX 100 FEET AND TOLERATED WELL ASSISTED BACK TO CHAIR NO SIGNIFICANT CHANGES AT THIS TIME
[2020-09-13 21:16] VITALS: BP 108/62
[2020-09-14 05:34] VITALS: BP 123/63
--- NOTE | 2020-09-14 07:10 | NUR ---
PATIENT RESTING IN BED QUEITLY. NO ADDITIONAL DISTRESS NOTED. CALL LIGHT WITHIN REACH. WILL CONT TO MONITOR.
[2020-09-14 07:40] LABS: CALCIUM 7.6 mg/dL (8.5-10.1); CARBON DIOXIDE 22.5 mmol/L (21-32); CHLORIDE SERUM 105 mmol/L (98-107); CREATININE SERUM 0.5 mg/dL (0.6-1.0); GFR1 > 60 mL/min; GLUCOSE SERUM 73 mg/dL (74-106); POTASSIUM SERUM 3.4 mmol/L (3.5-5.1); SODIUM SERUM 137 mmol/L (136-145)
--- NOTE | 2020-09-14 08:00 | NUR ---
EXPLAINED PLAN OF CARE AND PATIENT VERBALIZED UNDERSTANDING. DENIES PAIN, DISTRESS, OR SOB AT THIS TIME. DRESSING TO LEFT BREAST C/D/I. NEXT DRESSING CHANGE DUE ON 09/15/20. WILL CONT TO MONITOR.
--- NOTE | 2020-09-14 08:00 | NUR ---
400 ML OF CLEAR YELLOW URINE NOTED VIA BED SON.
[2020-09-14 08:21] VITALS: BP 112/67
[2020-09-14 08:34] LABS: BASOPHIL % 0.4 % (0-2); PLATELET COUNT 157 x10^3mcL (130-400)
[2020-09-14 08:38] LABS: RED CELL DISTRIBUTION WIDTH 18.4 % (11.5-14.5)
[2020-09-14 11:22] VITALS: BP 112/59
[2020-09-14 17:01] VITALS: BP 119/64
--- NOTE | 2020-09-14 18:25 | NUR ---
PATIENT IS RESTING IN BED QUEITLY EATING HER DINNER. DENIES DISTRESS, PAIN OR SOB AT THIS TIME. CALL LIGHT WITHIN REACH. WILL CONT TO MONITOR.
--- NOTE | 2020-09-14 18:55 | NUR ---
PHYSICAL THERAPY AT THE BEDSIDE.
--- NOTE | 2020-09-14 19:15 | NUR ---
UP IN THE CHAIR EATING HER DINNER. DENIES DISTRESS AT THIS TIME.
--- NOTE | 2020-09-14 20:17 | NUR ---
PT RECIEVED AAO SITTING UP ON THE CHAIR AND EATING,REG RESP NO SOB R/A SAT 96%,ABDO IS SOFT WITH ACTIVE BOWEL SOUNDS,IV INFUSING WELL WITH THE SITE PATENT AND INTACT,DRESSING TO THE LT INTACT,BED IN THE LOW POSITION AND LOCKED.KEPT CLEAN AND DRY TO TOUCH AND WILL CONTINUE TO MONITOR.
[2020-09-14 20:51] VITALS: BP 124/77
[2020-09-15 04:51] VITALS: BP 125/66
--- NOTE | 2020-09-15 06:27 | NUR ---
PT HAD A RESTING NIGHT NO CHANGE AT THIS TIME,WILL CONTINUE TO MONITOR.
[2020-09-15 07:55] LABS: CALCIUM 8.2 mg/dL (8.5-10.1); CARBON DIOXIDE 23.5 mmol/L (21-32); CHLORIDE SERUM 106 mmol/L (98-107); CREATININE SERUM 0.5 mg/dL (0.6-1.0); GFR1 > 60 mL/min; GLUCOSE SERUM 76 mg/dL (74-106); POTASSIUM SERUM 3.6 mmol/L (3.5-5.1); SODIUM SERUM 138 mmol/L (136-145)
[2020-09-15 08:02] LABS: BASOPHIL % 0.4 % (0-2); PLATELET COUNT 167 x10^3mcL (130-400)
[2020-09-15 08:27] LABS: RED CELL DISTRIBUTION WIDTH 18.2 % (11.5-14.5)
[2020-09-15 08:58] VITALS: BP 113/70
[2020-09-15 11:59] VITALS: BP 121/68
--- NOTE | 2020-09-15 12:20 | NUR ---
Wound care re-evaluation with dressing changed. moderate amount of bleeding noticed pressure dressing apply to wound site. SHAJI Lara at bed side, Wound care treatment discussed with both pt. and DIRECTOR REGULATORY AFFAIRS, they both agree to continue alginate dressing change 3x/week odor /drainage control & to limited dressing change/prevent bleeding during dressing change. Discharge wound care plan discussed, pt to decides if home health or short term skill nursing for continue wound care. per Dr. Jane OH aware of bleeding during dressing change and will visit pt. POC discussed with primary RN. per pt. she does not feel pain but the anixety of loosing more blood. Left breast fungating lesions surgical wound [id number], moist, no odor wound bed 100 % soft thin layer of pale yellow moist tissues, scabing flat wound edge and leonel-wound skin hyperpigmentation, multiple pin points bumps/growth with skin intact, hard to touch, pain 0/10 Pt. tolerate dressing change,
[2020-09-15 13:13] VITALS: BP 121/68
--- NOTE | 2020-09-15 15:45 | NUR ---
Follow-up Nutrition Assessment: Lizy B STEVO DEVLIN 54F MR Dx: Severe Anemia, Acute Blood Loss, Left Breast Mass Labs: (09/15) Cr 0.5L, CA 8.4L, WBC 11.3H, RBC 3.16L, H/H 9.4L/29L, *NA, K, CL, BG WNL (09/10/20) Na 140, K 3.8, Glu 64 L, BUN 12.0, Cr 0.6, TG 94, Chol 92, LDL 61, HDL 16 L, A1c 5.9, H/H 10.3 Meds: Colace, Sodium CHL, Zofran Diet: Regular diet PO intake: 10% - 100%, Average 75% x 7 meals (only one "0" entry reported). Weights: (09/15) 56.24 kg, Bed scale 63 kg/138 lbs, (09/10) 56.245kg BMI: 22.7 kg/km2, normal Skin condition: R arm large ecchymosis, BUE ecchymosis, Left breast wound (s/p left breast debridement surgical wound [id number] cm) Kp: 19 Edema: nonpitting edema to BLE and LUE Last BM: 09/14 per pt I/Os (ml): (09/15) 320/450=-130, (09/14) 5426/-=5426, (09/13) 1760/1975=540, (09/12) 3502/820=[address] Note (09/10): RDN spoke with Pt. Pt says she has an improved appetite, denies GI distress/discomfort. She says she does not like dempsey because it is too salty for her taste. RDN updated Computrition to reflect dislike for dempsey, prefer for turkey dempsey or proteins other than pork dempsey. Pt denies further questions/concerns for RDN at this time. RDN added Ensure Enlive BID as previously recommended to help meet estimated needs. RD note (09/15): During visit, pt was lying in bed, alert and oriented. Pt stated her appetite "is okay," and eats more than half of her food with good tolerance. Pt reported she dislikes Ensure Enlive because "it is too sweet," but she has been drinking about half of them. Pt was encouraged to continue drinking ONS. Two untouched ONS were observed on pt's bedside table. Pt denied any n/v/d/c today, and last BM reported was yesterday. Pt's PO average PO intake about 75% x 7 meals which meets 100% of energy and protein needs. Estimated Nutritional Needs Based on Actual (56kg) body weight Energy: 1680 - 1960 kcal/day (30-35 kcal/kg) breast ca, surgical wound Protein: 84 - 112 g/day (1.5 - 2.0 g/kg) catabolic illness, wt loss reported, surgical wound Fluid: 1680 - 1960 mL/day (1 mL/kcal) Nutrition Diagnosis: 1. Increased Nutrient Needs r/t catabolic illness aeb wound/ breast discharge/ bleeding, reported wt loss, anemic (ongoing). Intervention 1. Continue with Regular diet. 2. Continue Ensure Enlive BID. Monitor/Evaluate Goal: PO intake at least 75% of estimated needs Monitor: PO intake, Labs, GI function, ONS tolerance F/U in 3-5 days as moderate risk 09/18-6
--- NOTE | 2020-09-15 15:46 | NUR ---
1. Continue with Regular diet. 2. Continue Ensure Enlive BID.
[2020-09-15 16:04] VITALS: BP 115/78
--- NOTE | 2020-09-15 17:48 | NUR ---
SPOKE WITH DR DOUGHERTY THAT PATIENT IS LEAVING TODAY. MADE HIM AWARE THAT SHES IS GOING HOME WITH HH WITH DRESSING CHANGE X3 A WEEK. DR DOUGHERTY GOT UPSET AND STATED THAT DRESSIGN CHANGE SHOULD BE DAILY. MADE HIM AWARE THAT EVERY DRESSING CHANGE THERE IS MODERATE BLEEDING TO SITE. PER DR DOUGHERTY HE IS NOT GOING TO SEE THE PATIENT TONIGHT AND THAT SHE CAN GO HOME AND WILL NEED TO F/U W/ HIM AT HIS OFFICE. CHARGE NURSE RADHA LOPEZ IS MADE AWARE, WELL THE PATIENT.
--- NOTE | 2020-09-15 17:50 | NUR ---
PATIENT REFUSED TO GO HOME TODAY DUE TO NO ONE IS GOING TO PICK HER UP AND TAKE CARE OF HER TODAY. IS AT WORK. PER PATIENT, SHE RATHER GO HOME TOMORROW. NOTED PATIENT TO BE ANXIOUS AND RESTLESS AT THIS TIME DUE TO BEING SEND HOME TONIGHT.
--- NOTE | 2020-09-15 18:00 | NUR ---
CHARGE NURSE RADHA LOPEZ AND BODY SHOP ESTIMATOR IS MADE AWARE ABOUT PATIENT CONCERN ABOUT GOING HOME TONIGHT. PER BODY SHOP ESTIMATOR SHE WILL TALK TO THE PATIENT.
--- NOTE | 2020-09-15 18:10 | NUR ---
CIVIL RIGHTS REPRESENTATIVE TALKING TO THE PATIENT ON THE PHONE.
--- NOTE | 2020-09-15 18:20 | NUR ---
VINEYARD WORKER MADE GREYSON TOP LIFT CUTTER AWARE OF PATIENT IS REFUSING TO DC HOME TODAY. WILL DC IN AM.
--- NOTE | 2020-09-15 19:44 | NUR ---
REC'D PT FROM DAY NURSE. PT RESTING IN BED. AAOX4, SPEECH CLEAR, FOLLOWS COMMANDS. MED SURG. DENIES CP, DIZZINESS, OR PALPITATIONS. DENIES RESP DISTRESS OR SOB. BREATHING EVEN/UNLABORED ON RA. ABD SOFT/ROUND. DENIES ABD PAIN, TENDERNESS, OR N/V. VOIDING FREELY. GEN WEAKNESS. ABLE TO GET UP WITH ASSIST. PICC TO RAC, SITE WNL. ERYTHEMA TO SAJI. LLE NONPITTING EDEMA. DR MORROW AT BEDSIDE TO ASSESS THE PT. CALL LIGHT WITHIN REACH, BED AT LOWEST POSITION. WILL CONTINUE TO MONITOR.
--- NOTE | 2020-09-15 21:12 | NUR ---
REPORT GIVEN TO SARA LOPEZ. PT ON THE BSC HAVING A BM.
--- NOTE | 2020-09-15 21:15 | NUR ---
RECEIVED PT FROM JESSICA FLYNN. PT IS AAOX4, DENIES HEADACHE/NAUSEA/DIZZINESS. MED SURG PATIENT, DENYING CHEST PAIN. PULSES ARE EQUAL BILATERALLY, TRACE EDEMA NOTED TO BLE. PT IS CTA, ON RA, DENIES SOB. NO ACUTE DISTRESS NOTED, EVEN AND UNLABORED BREATHING. ABDOMEN IS SOFT AND ROUND, NO PAIN UPON PALPATION. NORMOACTIVE X4 QUADRANTS, LAST BM 09/15. PT VOIDS, ABLE TO AMBUATE WITH ASSISTANCE AND TRANSFER TO BEDSIDE COMMODE. PT COMPLAINS OF GENERALIZED WEAKNESS. PT HAS WOUND TO LEF BREAST, DRESSING CDI. PT HAS PICC LINE TO [place] AT 126 ML/HR. PATIENT IS CALM AND COOPERATIVE AT THIS TIME. BED IN LOWEST POSITION, CALL LIGHT WITHIN REACH. WILL CONTINUE TO MONITOR.
[2020-09-15 21:40] VITALS: BP 123/84
--- NOTE | 2020-09-15 22:15 | NUR ---
ULTRASOUND AT BEDSIDE. PATIENT QUESTIONING PURPOSE FOR ULTRASOUND AFTER DERMATOLOGY NURSE PRACTITIONER HAD DISCUSSED DISCHARGE. PATIENT STATES SHE [employer] PROCEDURES ARE NOW BEING DONE IN ORDER TO CHARGE HER INSURANCE. ULTRASOUND NOT DONE. COMMUNICATED WITH DR. ROBERTS. ALL SAFETY MEASURES IN PLACE. BED IN LOWEST POSITION, CALL LIGHT WITHIN REACH. WILL CONTINUE TO MONITOR.
[2020-09-16 05:17] VITALS: BP 129/72
--- NOTE | 2020-09-16 06:32 | NUR ---
PATIENT RESTED INTERMITTENTLY WITH EYES CLOSED. PATIENT IS MED SURG, DENIES CHEST PAIN. NS RUNNING AT 126ML/HR IN SAJI PICC LINE. NO ACUTE DISTRESS NOTED AT THIS TIME. ALL SAFETY MEASURES AT THIS TIME. BED IN LOWEST POSITION, CALL LIGHT WITHIN REACH. WILL CONTINUE TO MONITOR.
--- NOTE | 2020-09-16 07:17 | NUR ---
PATIENT IS RESTING IN BED QUEITLY. NO ADDITIONAL DISTRESS NOTED. CALL LIGHT WITHIN REACH. WILL CONT TO MONITOR.
--- NOTE | 2020-09-16 07:28 | NUR ---
REPORT GIVEN TO DAYSHIFT NURSE. ALL QUESTIONS/CONCERNS ADDRESSED.
--- NOTE | 2020-09-16 08:00 | NUR ---
EXPLAINED PLAN OF CARE AND PATIENT VERBALIZED UNDERSTANDING. HOWEVER, PATIENT HAS MULTIPLE CONCERNS ABOUT BEING DC HOME. REASSURE TO THE PATIENT THAT THE E TAILER WILL SEE AND DISCUSS WITH HER IN REGARDS TO GOING HOME TODAY. PATIENT NOTED TO BE NEEDY BY CALLING THE NURSES STUDENTS TO ACCOMPANY HER AND HAVE THEN DO MINOR DUTIES THAT THE PATIENT CAN DO BY HER OWN. FOR EX: MOVING SIDE TABLE, PUTTING PILLOW UNDER HER LEGS, ADJUSTING HER PILLOWS, REARRANGE HER TABLE, ETC. DENIES DISTRESS AT THIS TIME. BUT NOTED TO BE ANXIOUS ABOUT GOING HOME. WLL WAIT FOR DESIRE E TAILER.
[2020-09-16 08:33] VITALS: BP 131/72
--- NOTE | 2020-09-16 11:30 | NUR ---
GREYSON TIRE GROOVER HAD SPOKEN TO PATIENT IN REGARDS TO GOING HOME.
[2020-09-16] MEDS ORDERED: CIPRO500 MG PO (11:40)
[2020-09-16] MEDS ORDERED: MOT600 PO (11:40)
--- NOTE | 2020-09-16 12:00 | NUR ---
TUBE DISPATCHER LILLY SPOKE WITH PATIENT IN RAGARDS TO DC HOME TODAY.
[2020-09-16 12:20] VITALS: BP 119/71
[2020-09-16 16:07] VITALS: BP 121/72
--- NOTE | 2020-09-16 16:16 | NUR ---
DIETITIAN CO-SIGN The Nutrition Notes documented by the Human Resources Hr Generalist have been reviewed. Reviewed/Co-Signed by: Fuad Escobar Documentation Done by: Moni Amato
--- NOTE | 2020-09-16 17:45 | NUR ---
WALKER AT THE BEDSIDE. PRIMARY NURSE SIGNED THE PAPER FORM THAT THE PATIENT RECEIVED IT. CARRIER CANNOT COME UP TO THE UNIT FOR THE PATIENT TO SIGN. AWAITNG FOR PATIENT TO COME AND PICK HER UP. STABLE CONDITION AT THIS TIME. SITTING UP IN THE CHAIR. WILL CONT TO MONITOR.
--- NOTE | 2020-09-16 18:28 | NUR ---
PATIENT IS SITTING UP IN THE CHAIR EATING HER DINNER. STABLE CONDITION THROUGHOUT THE SHIFT. PATIENT NOTED TO BE NEEDY AND GIVING EXCUSES ON LEAVING TONIGHT. EXPLAINED PLAN OF CARE AGAIN TO PATIENT AND SHE VERBALIZED UNDERSTANDING.
--- NOTE | 2020-09-16 19:15 | NUR ---
RECEIVED PATIENT FROM DAY SHIFT NURSE. PATIENT IN NO ACUTE DISTRESS AT THIS TIME. SITTING AT BEDSIDE IN CHAIR. AWAKE, ALERT AND ORIENTED X4. DENIES PAIN AT THIS TIME. DRESSING TO LEFT BREAST CDI. EU BREATHING NOTED ON ROOM AIR. COMMODE AT BEDSIDE. ECCHYMOSIS NOTED TO RIGHT UPPER ARM, PICC LING TO SAJI. CALL LIGHT WITHIN REACH.
[2020-09-16 20:44] VITALS: BP 132/86
--- NOTE | 2020-09-16 21:20 | NUR ---
PATIENT PROVIDED WITH DISCHARGE PAPERWORK, WAITING FOR RIDE HOME.
== END 2020-09-16 22:20 | disposition home health service (06) | DRG 853 ==
LOC: ED 19:34 → DU 22:33 → MU 09-09 16:19
PROVIDERS: Emergency Medicine; ADMIT Family Medicine; ATTEND Family Medicine
PROC: 30233N1 Transfusion of Nonautologous Red Blood Cells into Peripheral Vein, Percutaneous Approach (ICD-10-PCS; principal; 2020-09-04)
PROC: 0HBU0ZX Excision of Left Breast, Open Approach, Diagnostic (ICD-10-PCS; 2020-09-05)
PROC: 02HV33Z Insertion of Infusion Device into Superior Vena Cava, Percutaneous Approach (ICD-10-PCS; 2020-09-10)
PROC: B548ZZA Ultrasonography of Superior Vena Cava, Guidance (ICD-10-PCS; 2020-09-10)
DX: A41.9 Sepsis, unspecified organism (principal); E43 Unspecified severe protein-calorie malnutrition; I21.A1 Myocardial infarction type 2; D68.59 Other primary thrombophilia; E87.1 Hypo-osmolality and hyponatremia; D62 Acute posthemorrhagic anemia; C79.51 Secondary malignant neoplasm of bone; M48.56XA Collapsed vertebra, not elsewhere classified, lumbar region, initial encounter for fracture; R65.20 Severe sepsis without septic shock; Z80.3 Family history of malignant neoplasm of breast; I10 Essential (primary) hypertension; E11.9 Type 2 diabetes mellitus without complications; C50.912 Malignant neoplasm of unspecified site of left female breast; Z68.23 Body mass index [BMI] 23.0-23.9, adult
CPT/HCPCS: 82962; 83880; 84439; 88344; 88361; 97116-GP; 97530-GP; G0378; J0330; J0696; J1100; J2001; J2405; J2543; J2710; J3010; J3370; J3490; J7030; J7040; J7050; J7060; J7120; P9016; Q9967

== ENCOUNTER 2020-10-03 16:02 | Inpatient (IN) | payer OTHER ==
[~2020-10-03] VITALS: Ht 162.6 cm; Wt 45.4 kg
[~2020-10-03 16:02] MED LIST: CIPRO500 MG PO; MOT600 PO
[2020-10-03 16:14] VITALS: Ht 162.6 cm; Wt 45.4 kg
[2020-10-03 17:06] LABS: PLATELET COUNT 264 x10^3mcL (179-408)
[2020-10-03 17:33] LABS: CALCIUM 9.9 mg/dL (8.5-10.1); CARBON DIOXIDE 22.8 mmol/L (21-32); CHLORIDE SERUM 99 mmol/L (98-107); CREATININE SERUM 0.7 mg/dL (0.6-1.0); GFR1 > 60 mL/min; GLUCOSE SERUM 112 mg/dL (74-106); POTASSIUM SERUM 4.1 mmol/L (3.5-5.1); SODIUM SERUM 133 mmol/L (136-145)
[2020-10-03 18:52] LABS: BAND NEUTROPHIL 14 % (0-10); METAMYELOCTE 5 % (0-2); MONOCYTE 11 % (0-7); SEGMENTED NEUTROPHILS 46 % (37-75); rbc morphology (normal/abnorm) ABNORMAL (NORMAL)
[2020-10-03 18:53] LABS: PLATELET MORPHOLOGY PLATELETS NORMAL
[2020-10-04 03:33] LABS: UA SPECIFIC GRAVITY >=1.030 (1.005-1.035); microscopic required? YES; urine erythrocyte 2+ (NEGATIVE)
[2020-10-04 10:53] LABS: CALCIUM 9.6 mg/dL (8.5-10.1); CARBON DIOXIDE 21.5 mmol/L (21-32); CHLORIDE SERUM 105 mmol/L (98-107); CREATININE SERUM 0.6 mg/dL (0.6-1.0); GFR1 > 60 mL/min; GLUCOSE SERUM 70 mg/dL (74-106); MAGNESIUM 1.9 mg/dL (1.8-2.4); PHOSPHOROUS 3.3 mg/dL (2.5-4.9); POTASSIUM SERUM 3.9 mmol/L (3.5-5.1); SODIUM SERUM 138 mmol/L (136-145)
[2020-10-04 10:57] LABS: C REACTIVE PROTEIN 13.7 mg/dL (<=0.9); PLATELET COUNT 194 x10^3mcL (179-408)
[2020-10-04 12:18] LABS: RED CELL DISTRIBUTION WIDTH 19.3 % (12.3-17.7)
[2020-10-04 15:09] LABS: MONOCYTE 13.3 % (0-7); SEGMENTED NEUTROPHILS 61.8 % (37-75); rbc morphology (normal/abnorm) NORMAL (NORMAL)
[2020-10-04 19:35] VITALS: BP 110/73
[2020-10-04 21:56] VITALS: BP 122/62
[2020-10-04 23:33] VITALS: BP 119/65
[2020-10-04 23:48] VITALS: BP 113/58
[2020-10-05] VITALS (7 sets, daily range): BP systolic 102–132; BP diastolic 54–76
[2020-10-05 07:39] LABS: PLATELET COUNT 173 x10^3mcL (179-408)
[2020-10-05 08:28] LABS: RED CELL DISTRIBUTION WIDTH 17.7 % (12.3-17.7)
[2020-10-05 08:45] LABS: CALCIUM 8.9 mg/dL (8.5-10.1); CARBON DIOXIDE 21.8 mmol/L (21-32); CHLORIDE SERUM 103 mmol/L (98-107); CREATININE SERUM 0.5 mg/dL (0.6-1.0); GFR1 > 60 mL/min; GLUCOSE SERUM 67 mg/dL (74-106); SODIUM SERUM 138 mmol/L (136-145)
[2020-10-05 15:30] LABS: BASOPHIL 1 % (0-2); MONOCYTE 12 % (0-7)
[2020-10-05 15:31] LABS: SEGMENTED NEUTROPHILS 65 % (37-75); rbc morphology (normal/abnorm) NORMAL (NORMAL)
[2020-10-06 05:57] VITALS: BP 109/59
[2020-10-06 07:34] LABS: BASOPHIL % 0.7 % (0.2-1.3); PLATELET COUNT 153 x10^3mcL (179-408)
[2020-10-06 07:45] LABS: RED CELL DISTRIBUTION WIDTH 17.6 % (12.3-17.7)
[2020-10-06 08:04] LABS: CALCIUM 8.7 mg/dL (8.5-10.1); CARBON DIOXIDE 22.6 mmol/L (21-32); CHLORIDE SERUM 105 mmol/L (98-107); CREATININE SERUM 0.5 mg/dL (0.6-1.0); GFR1 > 60 mL/min; SODIUM SERUM 140 mmol/L (136-145)
[2020-10-06 08:07] LABS: POTASSIUM SERUM 2.5 mmol/L (3.5-5.1)
[2020-10-06 08:08] LABS: GLUCOSE SERUM 54 mg/dL (74-106)
[2020-10-06 09:01] VITALS: BP 108/58
[2020-10-06] MEDS ORDERED: LEVAQUIN750 MG PO (12:43)
[2020-10-06 17:43] VITALS: BP 117/70
[2020-10-06 18:12] LABS: CALCIUM 8.3 mg/dL (8.5-10.1); CARBON DIOXIDE 24.8 mmol/L (21-32); CHLORIDE SERUM 106 mmol/L (98-107); CREATININE SERUM 0.5 mg/dL (0.6-1.0); GFR1 > 60 mL/min; GLUCOSE SERUM 84 mg/dL (74-106); POTASSIUM SERUM 3.8 mmol/L (3.5-5.1); SODIUM SERUM 139 mmol/L (136-145)
[2020-10-06 22:22] VITALS: BP 119/47
[2020-10-07 06:08] VITALS: BP 119/53
[2020-10-07 08:52] VITALS: BP 128/66
[2020-10-07 09:58] LABS: PLATELET COUNT 156 x10^3mcL (179-408)
[2020-10-07 10:06] LABS: CALCIUM 8.7 mg/dL (8.5-10.1); CARBON DIOXIDE 24.6 mmol/L (21-32); CHLORIDE SERUM 106 mmol/L (98-107); CREATININE SERUM 0.5 mg/dL (0.6-1.0); GFR1 > 60 mL/min; GLUCOSE SERUM 79 mg/dL (74-106); POTASSIUM SERUM 3.7 mmol/L (3.5-5.1); SODIUM SERUM 138 mmol/L (136-145)
[2020-10-07 12:59] VITALS: BP 121/70
[2020-10-07 13:14] LABS: MONOCYTE 11.2 % (0-7); SEGMENTED NEUTROPHILS 66.6 % (37-75)
[2020-10-07 13:15] VITALS: BP 121/70
[2020-10-07 13:15] LABS: BASOPHIL 0.7 % (0-2)
[2020-10-07 14:59] LABS: rbc morphology (normal/abnorm) NORMAL (NORMAL)
[2020-10-07 18:39] VITALS: BP 127/72
== END 2020-10-07 23:30 | disposition home or self-care (01) | DRG 872 ==
LOC: ED 16:02 → DU 20:11
PROVIDERS: Emergency Medicine; Internal Medicine; ADMIT Family Medicine; ATTEND Family Medicine
PROC: 30233N1 Transfusion of Nonautologous Red Blood Cells into Peripheral Vein, Percutaneous Approach (ICD-10-PCS; 2020-10-04)
PROC: 0W9B3ZZ Drainage of Left Pleural Cavity, Percutaneous Approach (ICD-10-PCS; principal; 2020-10-05)
DX: A41.9 Sepsis, unspecified organism (principal); J90 Pleural effusion, not elsewhere classified; D62 Acute posthemorrhagic anemia; D68.69 Other thrombophilia; R65.20 Severe sepsis without septic shock; C50.912 Malignant neoplasm of unspecified site of left female breast; Z20.828 Contact with and (suspected) exposure to other viral communicable diseases; Z85.3 Personal history of malignant neoplasm of breast; Z79.899 Other long term (current) drug therapy
CPT/HCPCS: 32555; 85378; C1729; G0378; J1940; J1956; J2543; J3010; J3370; J3480; J7030; J7050; P9016; U0003